=== PATIENT | female | born 1980 | race Caucasian/White ===

== ENCOUNTER 2016-07-21 05:56 | Inpatient (IN) | payer BC ==
[2016-07-21 06:12] VITALS: BMI 42.6
[2016-07-21] MEDS ORDERED: NS 1,000 ML IV ONE ×2 (06:17→06:47)
[2016-07-21] MEDS ORDERED: ONDANSETRON HCL 4 MG/2 ML VIAL IV STA (06:17)
--- NOTE | 2016-07-21 06:41 | EDPRACDOC ---
- General Information Information Source: Patient Mode Of Arrival: Walk - History of Present Illness Onset: yesterday Pain Location: Reports: Suprapubic Pain Context: Reports: Spontaneous Pain Severity: Moderate Pain Quality: Reports: Aching Pain Radiation: Reports: Flank Last Menstrual Period: 2 weeks ago : No Female Associated Signs & Symptoms: Reports: Nausea, Vomiting, Dysuria, Fever Oral Intake: Decreased <Mason Adams - Last Filed: 07/21/16 06:27> <Walter Torres - Last Filed: 07/21/16 08:12> - General Information Chief Complaint: Abdominal Pain Stated Complaint: KIDNEY PAIN/ VOMITING Time Seen by Provider: 07/21/16 06:01 Home Medications: Home Medications Ciprofloxacin HCl 500 mg PO BID 07/21/16 Promethazine [Phenergan] 1 tab PO Q6-8H PRN 07/21/16 Allergies/Adverse Reactions: Allergies Allergy/AdvReac Type Severity Reaction Status Date / Time codeine [Codeine] Allergy See Verified 09/30/14 20:44 Comments - History of Present Illness HPI: PT PRESENTS WITH LOWER ABDOMINAL PAIN AND FLANK PAIN WITH FEVERS AT HOME. SHE WENT TO URGENT CARE YESTERDAY AND WAS DIAGNOSED WITH A UTI. (Mason Adams) ED Past Medical History - History Reviewed Yes Nurses notes reviewed and agree except as marked - Patient Medical History Cardiac History: Reports: Hypercholesterolemia Psychological History: Reports: Depression, Anxiety. Denies: Substance Use Disorder Surgical History: Reports: Hysterectomy, Other (CARPAL TUNNEL SURGERY) - Social Medical History Smoking Status: Heavy tobacco smoker (5 or more cigarettes/day or daily pipe/ cigar) Social History: Denies: Substance Use Disorder Lives With: Family Lives In: Home <Mason Adams - Last Filed: 07/21/16 06:27> EDM Review of Systems - Review of Systems ROS Negative Except as Marked: Yes All systems reviewed and were negative except as marked Constitutional: Chills, Fever, Fatigue, Weakness Respiratory: negative: Shortness of Breath Cardiovascular: negative: Chest Pain Gastrointestinal: Nausea, Pain, Vomiting. negative: Diarrhea Genitourinary: Dysuria, Flank Pain <Mason Adams - Last Filed: 07/21/16 06:27> - Physical Exam Constitutional: Alert Oriented to: Time, Person, Place - HEENT Head: negative: Deformity, Laceration Eye Exam: negative: Conjunctival Injection, Pale Conjunctiva Oropharynx: negative: Membranes Dry Nose: negative: Congestion, Discharge Neck: negative: Limited ROM - Respiratory/Cardiovascular Respiratory: Normal - CTA. negative: Accessory Muscle Use, Diminished, Tachypnea Cardiovascular: Tachycardia. negative: Bradycardia, Irregular - GI Auscultation: Normal Palpation: Normal Tenderness: Mild, Suprapubic. negative: Guarding, Rebound, Rigidity - Musculoskeletal Extremities: Radial Pulse (PALPABLE) - Integumentary Skin: Warm, Dry. negative: Rash - Neurologic Memory Impaired: Normal Motor Function: Normal Mood Description: Anxious, Appropriate Thought: Coherent Perception: Normal <Mason Adams - Last Filed: 07/21/16 06:27> - EKG EKG #1 EKG Time: 06:39 -: Yes EKG interpreted by me Rate: bpm: 95 Rhythm: NSR Block: None ST: Nonsp <Mason Adams - Last Filed: 07/21/16 06:27> - Results 07/21/16 06:45 07/21/16 06:45 <Walter Torres - Last Filed: 07/21/16 08:12> - Results WBC 24.3 xk/uL (3.8-10.8) H 07/21/16 06:45 RBC 4.73 xM/uL (4.20-5.40) 07/21/16 06:45 Hgb 14.8 g/dL (12.0-16.0) 07/21/16 06:45 Hct 43.9 % (36-47) 07/21/16 06:45 MCV 93 fL (81-99) 07/21/16 06:45 MCH 31.4 pg (27-32) 07/21/16 06:45 MCHC 33.8 g/dl (33-36) 07/21/16 06:45 RDW 12.9 % (11.5-14.5) 07/21/16 06:45 Plt Count 306 xk/uL (130-400) 07/21/16 06:45 MPV 7.9 fL (7.4-10.4) 07/21/16 06:45 Neut % (Auto) Cancelled 07/21/16 06:45 Lymph % (Auto) Cancelled 07/21/16 06:45 [place] % (Auto) Cancelled 07/21/16 06:45 Eos % (Auto) Cancelled 07/21/16 06:45 Baso % (Auto) Cancelled 07/21/16 06:45 Absolute Neuts (auto) Cancelled 07/21/16 06:45 Absolute Lymphs (auto) Cancelled 07/21/16 06:45 Seg Neuts % (Manual) 72 % (45-76) 07/21/16 06:45 Band Neutrophils % 4 % (0-5) 07/21/16 06:45 Lymphocytes % (Manual) 15 % (17-44) L 07/21/16 06:45 Monocytes % (Manual) 9 % (0-10) 07/21/16 06:45 Absolute Neutrophils 18.47 xk/uL (1.7-8.2) H 07/21/16 06:45 Absolute Lymphocytes 3.65 xk/uL (0.65-4.75) 07/21/16 06:45 Platelet Estimate Norm (NORMAL) 07/21/16 06:45 RBC Morphology Norm 07/21/16 06:45 PT 11.6 SEC (9.2-11.2) H 07/21/16 06:45 INR 1.1 07/21/16 06:45 APTT 31.3 SEC (22-35) 07/21/16 06:45 Sodium 138 mEq/L (137-146) 07/21/16 06:45 Potassium 3.4 mEq/L (3.5-5.1) L 07/21/16 06:45 Chloride 104 mEq/L (98-107) 07/21/16 06:45 Carbon Dioxide 24 mMOL/L (22-33) 07/21/16 06:45 Anion Gap 13 mEq/L (8-16) 07/21/16 06:45 BUN 8 MG/DL (7-17) 07/21/16 06:45 Creatinine 0.70 MG/DL (0.52-1.04) 07/21/16 06:45 Estimated GFR (MDRD) > 60 mL/min (>=60) 07/21/16 06:45 Glucose 115 MG/DL (70-99) H 07/21/16 06:45 Calculated Osmolality 265 MOs/Kg (270-290) L 07/21/16 06:45 Lactic Acid 1.2 mEq/L (0.7-2.1) 07/21/16 06:45 Calcium 8.6 MG/DL (8.4-10.2) 07/21/16 06:45 Corrected Calcium 9.0 MG/DL (8.4-10.2) 07/21/16 06:45 Total Bilirubin 0.6 MG/DL (0.2-1.3) 07/21/16 06:45 AST 21 IU/L (14-36) 07/21/16 06:45 ALT 25 IU/L (9-52) 07/21/16 06:45 Alkaline Phosphatase 79 IU/L (38-126) 07/21/16 06:45 Total Protein 7.0 G/DL (6.3-8.2) 07/21/16 06:45 Albumin 3.6 G/DL (3.5-5.0) 07/21/16 06:45 Urine Color Dark yellow 07/21/16 06:25 Urine Clarity Sl cldy 07/21/16 06:25 Urine pH 6.0 (5.0-8.0) 07/21/16 06:25 Ur Specific [place] 1.015 (1.003-1.035) 07/21/16 06:25 Urine Protein 2+ (NEG/TRACE) H 07/21/16 06:25 Urine Glucose (UA) Trace (NEGATIVE) 07/21/16 06:25 Urine Ketones Neg (NEGATIVE) 07/21/16 06:25 Urine Occult Blood 3+ (NEG/TRACE) H 07/21/16 06:25 Urine Nitrite Neg (NEGATIVE) 07/21/16 06:25 Urine Bilirubin Neg (NEGATIVE) 07/21/16 06:25 Urine Urobilinogen <2.0 MG/DL (0-1) 07/21/16 06:25 Ur Leukocyte Esterase 2+ (NEGATIVE) H 07/21/16 06:25 Urine RBC 10-20 (0-5) H 07/21/16 06:25 Urine WBC Tntc (0-5) H 07/21/16 06:25 Urine WBC Clumps Present (NONE) H 07/21/16 06:25 Ur Epithelial Cells 2+ 07/21/16 06:25 Urine Bacteria Few (NEG/FEW) 07/21/16 06:25 Urine Mucus Mod (NEG/OCC) H 07/21/16 06:25 Lab Results 07/21/16 07/21/16 07/21/16 06:45 06:45 06:45 WBC 24.3 H RBC 4.73 Hgb 14.8 Hct 43.9 MCV 93 MCH 31.4 MCHC 33.8 RDW 12.9 Plt Count 306 MPV 7.9 Neut % (Auto) Cancelled Lymph % (Auto) Cancelled [place] % (Auto) Cancelled Eos % (Auto) Cancelled Baso % (Auto) Cancelled Absolute Neuts (auto) Cancelled Absolute Lymphs (auto) Cancelled Seg Neuts % (Manual) 72 Band Neutrophils % 4 Lymphocytes % (Manual) 15 L Monocytes % (Manual) 9 Absolute Neutrophils 18.47 H Absolute Lymphocytes 3.65 Platelet Estimate Norm RBC Morphology Norm PT 11.6 H INR 1.1 APTT 31.3 Sodium Potassium Chloride Carbon Dioxide Anion Gap BUN Creatinine Estimated GFR (MDRD) Glucose Calculated Osmolality Lactic Acid 1.2 Calcium Corrected Calcium Total Bilirubin AST ALT Alkaline Phosphatase Total Protein Albumin Urine Color Urine Clarity Urine pH Ur Specific [place] Urine Protein Urine Glucose (UA) Urine Ketones Urine Occult Blood Urine Nitrite Urine Bilirubin Urine Urobilinogen Ur Leukocyte Esterase Urine RBC Urine WBC Urine WBC Clumps Ur Epithelial Cells Urine Bacteria Urine Mucus 07/21/16 07/21/16 06:45 06:25 WBC RBC Hgb Hct MCV MCH MCHC RDW Plt Count MPV Neut % (Auto) Lymph % (Auto) [place] % (Auto) Eos % (Auto) Baso % (Auto) Absolute Neuts (auto) Absolute Lymphs (auto) Seg Neuts % (Manual) Band Neutrophils % Lymphocytes % (Manual) Monocytes % (Manual) Absolute Neutrophils Absolute Lymphocytes Platelet Estimate RBC Morphology PT INR APTT Sodium 138 Potassium 3.4 L Chloride 104 Carbon Dioxide 24 Anion Gap 13 BUN 8 Creatinine 0.70 Estimated GFR (MDRD) > 60 Glucose 115 H Calculated Osmolality 265 L Lactic Acid Calcium 8.6 Corrected Calcium 9.0 Total Bilirubin 0.6 AST 21 ALT 25 Alkaline Phosphatase 79 Total Protein 7.0 Albumin 3.6 Urine Color Dark yellow Urine Clarity Sl cldy Urine pH 6.0 Ur Specific [place] 1.015 Urine Protein 2+ H Urine Glucose (UA) Trace Urine Ketones Neg Urine Occult Blood 3+ H Urine Nitrite Neg Urine Bilirubin Neg Urine Urobilinogen <2.0 Ur Leukocyte Esterase 2+ H Urine RBC 10-20 H Urine WBC Tntc H Urine WBC Clumps Present H Ur Epithelial Cells 2+ Urine Bacteria Few Urine Mucus Mod H (Walter Torres) <Mason Adams - Last Filed: 07/21/16 06:27> - Departure Yes I personally saw and evaluated the patient. Disposition: Admit IP To This Hospital Decision to Admit Time: 08:12 Decision to admit date: 07/21/16 Decision to admit: from ED - Physician Consulted Hospitalist Time Called: 08:12 Provider Called: Kamron Loaiza Time Radiology Administrator Returned Call: 08:12 <Walter Torres - Last Filed: 07/21/16 08:12> - Departure Condition: Stable Final Diagnosis: Pyelonephritis UTI (urinary tract infection) Qualifiers: Urinary tract infection type: acute cystitis Hematuria presence: with hematuria Qualified Code(s): N30.01 - Acute cystitis with hematuria Nausea & vomiting Qualifiers: Vomiting type: unspecified Vomiting Intractability: non-intractable Qualified Code(s): R11.2 - Nausea with vomiting, unspecified Acute low back pain Qualifiers: Back pain laterality: bilateral Sciatica presence: without sciatica Qualified Code(s): M54.5 - Low back pain Instructions: Urinary Tract Infection in Women (ED), Dysuria, Acute Nausea and Vomiting (ED), Core Strengthening Exercises (GEN), Back Pain
[2016-07-21 06:45] LABS: LEUKOCYTES/URINE 2+ (NEGATIVE); NITRITE/URINE NEG (NEGATIVE); URINE OCCULT BLOOD 3+ (NEG/TRACE); WBC/URINE TNTC (0-5)
[2016-07-21] MEDS ORDERED: MORPHINE 4 MG/ML INJECTION IV ONE (06:45)
--- NOTE | 2016-07-21 06:52 | DIRPT ---
CLINICAL DATA: Acute onset of vomiting and chills. Initial encounter. EXAM: PORTABLE CHEST 1 VIEW COMPARISON: None. FINDINGS: The lungs are well-aerated and clear. There is no evidence of focal opacification, pleural effusion or pneumothorax. The cardiomediastinal silhouette is within normal limits. No acute osseous abnormalities are seen. IMPRESSION: No acute cardiopulmonary process seen. Electronically Signed By: Garrick Cortez M.D. On: 07/21/2016 06:49
[2016-07-21] MEDS ORDERED: Pharmacy Review for Metformin - IV Contrast Given SCH (07:00)
[2016-07-21 07:03] LABS: MPV 7.9 fL (7.4-10.4)
[2016-07-21 07:08] LABS: BLOOD UREA NITROGEN 8 MG/DL (7-17); CALCIUM 8.6 MG/DL (8.4-10.2); CALCULATED OSMOLALITY 265 MOs/Kg (270-290); CHLORIDE 104 mEq/L (98-107); GLUCOSE 115 MG/DL (70-99); SODIUM LEVEL 138 mEq/L (137-146)
[2016-07-21 07:13] LABS: PARTIAL THROMB. TIME 31.3 SEC (22-35); PT-INR 1.1
--- NOTE | 2016-07-21 07:26 | DIRPT ---
CLINICAL DATA: Lower abdominal and pelvic pain, 6 days duration. Clinical suspicion of pyelonephritis. Abdominal pain and fever. EXAM: CT ABDOMEN AND PELVIS WITH CONTRAST TECHNIQUE: Multidetector CT imaging of the abdomen and pelvis was performed using the standard protocol following bolus administration of intravenous contrast. CONTRAST: 100 cc Isovue 370 COMPARISON: 01/27/2008 FINDINGS: There is diffuse fatty change of the liver without focal lesion. No calcified gallstones. The spleen is normal. The pancreas is normal. The adrenal glands are normal. The kidneys are normal by CT. Symmetric and normal size. No cyst, mass, stone or hydronephrosis. No imaging evidence of pyelonephritis. The aorta and IVC are normal except for early atherosclerosis. No retroperitoneal mass or adenopathy. No free intraperitoneal fluid or air. No bowel pathology is seen. Normal appearing appendix. Uterus and adnexal regions are normal. Bladder is normal. No significant bone finding. IMPRESSION: No CT finding to indicate pyelonephritis. No acute finding. Fatty liver. Early atherosclerosis. Electronically Signed By: Josesito Navas M.D. On: 07/21/2016 07:23
[2016-07-21 07:27] LABS: SEG NEUTROPHIL 72 % (45-76)
[2016-07-21] MEDS ORDERED: CEFTRIAXONE 1 GM in D5W 100 ML IV ONE (07:52)
[2016-07-21] MEDS ORDERED: PROMETHAZINE 25 MG TAB PO PRN (08:13)
[2016-07-21] MEDS ORDERED: BISACODYL 10 MG SUPP PR PRN (08:13)
[2016-07-21] MEDS ORDERED: BENZONATATE 100 MG PERLES PO PRN (08:13)
[2016-07-21] MEDS ORDERED: SENNA CONCENTRATE TAB PO PRN (08:13)
[2016-07-21] MEDS ORDERED: ACETAMINOPHEN 325 MG/TAB TABLET PO PRN (08:13)
[2016-07-21] MEDS ORDERED: METOCLOPRAMIDE 10 MG/2 ML VIAL IV PRN (08:13)
[2016-07-21] MEDS ORDERED: PROMETHAZINE 25 MG/ML VIAL IV PRN (08:13)
[2016-07-21] MEDS ORDERED: ACETAMINOPHEN 325 MG SUPP PR PRN (08:13)
--- NOTE | 2016-07-21 08:13 | HISTPHYS ---
- Chief Complaint Urinary tract infection yesterday started on Cipro but unable to keep medicine down nausea vomiting - History of Present Illness Patient very pleasant 36 year white morbidly obese smoker female who comes in the emergency room today complaining of burning on urination starting 6 days ago and never had history of urinary tract infection. She had lower abdominal pain getting worse over the past several days with fever. Nausea vomiting accompanying her infection starting yesterday and unable to keep down her Cipro that which she was just given at the walk-in clinic near [place]. She was unable to keep any other medication down over the next 18 hours. Upon arrival here she was noted to have significant pyuria. She smokes a pack and half cigarettes a day as well as her . She has been able to quit smoking twice in her life 1 time for year the other time for 6 months. She does not drink any alcoholic beverages nor does she take any illicit drugs. - Medical History Cardiac History: Reports: Hypercholesterolemia Respiratory History: Reports: No Significant History GI/ History: Reports: [facility] GI Yes/No Other (Fatty liver disease noted on CT of the abdomen) Musculoskeletal History: Reports: No Significant History Systemic History: Reports: No Significant History Neurological History: Reports: No Significant History Psychological History: Reports: Depression, Anxiety. Denies: Substance Use Disorder - Surgical History Reports: Other (Transposition of the right ulnar nerve, D&C for endometriosis & BTL) - Medictions/Allergies Allergies codeine [Codeine] Allergy (Verified 09/30/14 20:44) See Comments "very hyper" Current Medication List: Reviewed Home Medications Ciprofloxacin HCl 500 mg PO BID 07/21/16 Promethazine [Phenergan] 1 tab PO Q6-8H PRN 07/21/16 - Family History Reports: Hypertension (Father), Cancer (Cancer of the prostate in her father), Other (Father with black lung disease) - Social History Travel Outside of [place] in the Last 3 Months?: No Lives: With Family Smoking Status: Heavy tobacco smoker (5 or more cigarettes/day or daily pipe/ cigar) (Smokes pack and half cigarettes a day was able to quit twice in the past once for a year the other for 6 months) Social History: Denies: Alcohol Use, Substance Use Disorder - Review of Systems Constitutional: Chills, Fever, Fatigue, Weakness Eyes: No Symptoms Reported (No blurry vision, visual changes, eye pain, or eye redness.) Ears: No Symptoms Reported (No ear pain or discharge) Nose: No Symptoms Reported (No nasal discharge/congestion or bleeding) Mouth: No Symptoms Reported (No oropharyngeal lesions or erythema) Throat/Neck: No Symptoms Reported (No throat pain or swelling.No oropharyngeal lesions or erythema.) Respiratory: No Symptoms Reported (No cough, wheezing, or shortness of breath.) Cardiovascular: No Symptoms Reported (No chest pain or palpitations.) Gastrointestinal: Nausea, Vomiting, Abdominal Pain Genitourinary: Dysuria, Frequency, Urgency to urinate Neurological: No Symptoms Reported (No headache, dizziness, seizures, or focal weakness.) Musculoskeletal:: Osteoarthritis Integumentary: No Symptoms Reported (no rashes or lesions) Allergic/Immunologic: No Symptoms Reported (no rashes or lesions) Hematologic: No Symptoms Reported (No chronic anemia, bleeding, or easy bruising.), Other (Lymphatics- no lymph node swelling or pain.) Endocrine: No Symptoms Reported (No thyroid issues, polyuria, or polydipsia.) Psychiatric: Anxiety, Depression - Physical Exam Vital Signs: Initial Vitals Temperature 98.6 F 07/21/16 06:04 Pulse Rate 115 07/21/16 06:04 Respiratory Rate 18 07/21/16 06:04 Blood Pressure 147/74 07/21/16 06:04 Pulse Oxygen Saturation 96 07/21/16 06:04 Constitutional: Alert (Awake, Fully oriented. Normal and appropriate affect.Well appearing. Well nourished.), No apparent distress Oriented to: Time, Person, Place - HEENT Head: Normal (normocephalic, atraumatic.), Other (No cervical lymphadenopathy. No supraclavicular lymphadenopathy. Neck: No palpable mass, supple , trachea midline.) Eye: Normal (pupils equal, reactive to light, and round; EOMI, Sclera white) Oropharynx: Normal (Pharynx: Moist without exudate,Gums-no swelling, No oropharyngeal lesions or erythema, Mucous membranes are dry.) ENT EAC: Normal (No oropharyngeal lesions or erythema. Mucous membranes are dry. ) TMJ: Normal Nose: No Symptoms Reported (septum midline, Nares patent, without discharge or bleeding.) Respiratory: Normal - CTA (Clear to auscultation bilaterally. No wheezing, rales , rhonchi. Chest wall movements are symmetric. No use of accessory muscles to breathe.) Cardiovascular: Normal (RRR , Normal S1, S2. No murmurs, rubs, or gallops. PMI non-displaced. Carotids: no carotid bruits. No bradycardia or tachycardia. DP pulses 2+ bilaterally.) - GI Auscultation: Normal (normal active sounds) Palpation: Normal (Soft,non distended, No discernible hepatosplenomegaly.), Other (Morbid obesity with BMI 42.7) Tenderness: Mild, Moderate, Suprapubic Gomez's Sign: Negative - Musculoskeletal Back: Normal (Non-Tender) Extremities: Normal (Normal tone, DP pulses 2+ bilaterally, No cyanosis or edema bilaterally, FROM bilaterally.) Spine: non-tender, normal alignment, limited range of motion - Integumentary Skin: Normal (Clean, dry, and intact. No rashes. No lesions.) Lymphatics: Normal (No cervical lymphadenopathy. No supraclavicular lymphadenopathy.) - Neurologic Memory Impaired: Normal Motor Function: Normal (Motor 5/5 throughout.Normal tone, Pulses 2+ No cyanosis or edema, FROM) Cranial Nerve: Normal (CN II-XII intact sensation, strength 5/5) Cerebellar: Normal (Babinski: toes downgoing bilaterally. Intact Finger to nose. Sensory grossly intact to light touch. Intact rapid alternating movements bilaterally. No pronator drift.) Mood Description: Normal (Fully oriented. Normal and appropriate affect.) Thought: Coherent Perception: Normal (Normal and appropriate affect.) - Focused CV Perfusion Exam Vital Signs: Last Vital Signs Temp 98.6 F 07/21/16 06:04 Pulse 94 07/21/16 07:17 Resp 18 07/21/16 07:17 BP 114/60 07/21/16 07:17 Pulse Ox 96 07/21/16 07:17 - Lab Results 07/21/16 06:45 07/21/16 06:45 Laboratory Results - last 24 hr 07/21/16 07/21/16 07/21/16 06:25 06:45 06:45 WBC RBC Hgb Hct MCV MCH MCHC RDW Plt Count MPV Neut % (Auto) Lymph % (Auto) [place] % (Auto) Eos % (Auto) Baso % (Auto) Absolute Neuts (auto) Absolute Lymphs (auto) Seg Neuts % (Manual) Band Neutrophils % Lymphocytes % (Manual) Monocytes % (Manual) Absolute Neutrophils Absolute Lymphocytes Platelet Estimate RBC Morphology PT INR APTT Sodium 138 Potassium 3.4 L Chloride 104 Carbon Dioxide 24 Anion Gap 13 BUN 8 Creatinine 0.70 Estimated GFR (MDRD) > 60 Glucose 115 H Calculated Osmolality 265 L Lactic Acid 1.2 Calcium 8.6 Corrected Calcium 9.0 Total Bilirubin 0.6 AST 21 ALT 25 Alkaline Phosphatase 79 Total Protein 7.0 Albumin 3.6 TSH Urine Color Dark yellow Urine Clarity Sl cldy Urine pH 6.0 Ur Specific [place] 1.015 Urine Protein 2+ H Urine Glucose (UA) Trace Urine Ketones Neg Urine Occult Blood 3+ H Urine Nitrite Neg Urine Bilirubin Neg Urine Urobilinogen <2.0 Ur Leukocyte Esterase 2+ H Urine RBC 10-20 H Urine WBC Tntc H Urine WBC Clumps Present H Ur Epithelial Cells 2+ Urine Bacteria Few Urine Mucus Mod H 07/21/16 07/21/16 07/21/16 06:45 06:45 06:45 WBC 24.3 H RBC 4.73 Hgb 14.8 Hct 43.9 MCV 93 MCH 31.4 MCHC 33.8 RDW 12.9 Plt Count 306 MPV 7.9 Neut % (Auto) Cancelled Lymph % (Auto) Cancelled [place] % (Auto) Cancelled Eos % (Auto) Cancelled Baso % (Auto) Cancelled Absolute Neuts (auto) Cancelled Absolute Lymphs (auto) Cancelled Seg Neuts % (Manual) 72 Band Neutrophils % 4 Lymphocytes % (Manual) 15 L Monocytes % (Manual) 9 Absolute Neutrophils 18.47 H Absolute Lymphocytes 3.65 Platelet Estimate Norm RBC Morphology Norm PT 11.6 H INR 1.1 APTT 31.3 Sodium Potassium Chloride Carbon Dioxide Anion Gap BUN Creatinine Estimated GFR (MDRD) Glucose Calculated Osmolality Lactic Acid Calcium Corrected Calcium Total Bilirubin AST ALT Alkaline Phosphatase Total Protein Albumin TSH 2.29 Urine Color Urine Clarity Urine pH Ur Specific [place] Urine Protein Urine Glucose (UA) Urine Ketones Urine Occult Blood Urine Nitrite Urine Bilirubin Urine Urobilinogen Ur Leukocyte Esterase Urine RBC Urine WBC Urine WBC Clumps Ur Epithelial Cells Urine Bacteria Urine Mucus - Diagnostic Findings CT abdomen pelvis no evidence of pyelonephritis but she does have fatty liver. - Assessment (1) Nausea & vomiting R11.2 - NAUSEA WITH VOMITING, UNSPECIFIED Acute Qualifiers: Vomiting type: unspecified Vomiting Intractability: non-intractable Qualified Code(s): R11.2 - Nausea with vomiting, unspecified Gastroenteritis so she ate with her urinary tract infection making it impossible for her to take her p.o. antibiotics. Patient started on IV Rocephin and Levaquin for the significant infection. (2) Pyelonephritis N12 - TUBULO-INTERSTITIAL NEPHRITIS, NOT SPCF ACUTE OR CHRONIC Acute Present on Admission: Yes Urinary tract infection with suggestion of pyelonephritis not evident on CT of the abdomen pelvis. IV antibiotics consisting of Rocephin Levaquin until sensitivities are available. Clear liquid diet will be offered until able to take more substantial feedings. (3) Fatty liver disease, nonalcoholic K76.0 - FATTY (CHANGE OF) LIVER, NOT ELSEWHERE CLASSIFIED Chronic Present on Admission: Yes Likely associated with her morbid obesity. Caloric restriction is necessary. (4) Tobacco abuse Z72.0 - TOBACCO USE Chronic Present on Admission: Yes Discussed smoking cessation with patient and spouse for at least 11 minutes and patient expressed interest in starting on Chantix. She indicated she had been able to quit smoking cigarettes twice in the past; once for 6 months and the other for a year. (5) Morbid obesity with BMI of 40.0-44.9, adult E66.01 - MORBID (SEVERE) OBESITY DUE TO EXCESS CALORIES; Z68.41 - BODY MASS INDEX (BMI) 40.0-44.9, ADULT Chronic Present on Admission: Yes Case Care Discussed with: Patient, Family, Nursing Staff, Resource Management Total Time: One Hour 20 minutes Critical Care: No Code: [id number] ([id number])
[2016-07-21] MEDS ORDERED: BuPROPion 150 MG SR TAB PO SCH (09:00)
[2016-07-21] MEDS: Levofloxacin 750 mg/150 ml D5W 750 MG/150 ML RTU IV SCH (10:31)
[2016-07-21] MEDS: NS/KCl 20 mEq 1,000 ML IV SCH ×2 (10:31→17:29)
[2016-07-21] MEDS: OXYCODONE HCL 5 MG TABLET PO PRN ×2 (10:32→21:07)
[2016-07-21] MEDS: NICOTINE 21 MG PATCH TOP SCH (10:32)
[2016-07-21] MEDS ORDERED: Vaccine Screening Complete SCH (11:00)
[2016-07-21] MEDS: PROBIOTIC BLEND TAB PO SCH ×2 (11:59→17:10)
[2016-07-21] MEDS ORDERED: NS 50 ML IV ONE (14:21)
[2016-07-21] MEDS ORDERED: HYDROmorphone 1 MG INJECTION IV PRN (15:19)
[2016-07-21] MEDS: HYDROmorphone 1 MG INJECTION IV PRN ×2 (15:33→22:55)
[2016-07-21] MEDS ORDERED: ENOXAPARIN 80 MG/0.8 ML PFS SQ SCH (18:00)
[2016-07-21] MEDS: IBUPROFEN INTRAVENOUS 400 MG in NS 100 ML IV PRN (18:14)
[2016-07-21] MEDS: KCl 10 mEq/100 ml Premix (Run) 10 MEQ/100 ML RTU IV SCH (20:13)
[2016-07-21] MEDS: TEMAZEPAM 15 MG CAP PO PRN ×2 (20:58→22:55)
[2016-07-22] MEDS ORDERED: Aluminum;Magnesium;Simethicone 30 ML UDC PO PRN (00:04)
[2016-07-22] MEDS ORDERED: Aluminum;Magnesium;Simethicone 30 ML UDC PO ONE (00:05)
[2016-07-22] MEDS: KCl 10 mEq/100 ml Premix (Run) 10 MEQ/100 ML RTU IV SCH (00:38)
[2016-07-22] MEDS: NS/KCl 20 mEq 1,000 ML IV SCH ×2 (02:11→05:23)
[2016-07-22] MEDS: OXYCODONE HCL 5 MG TABLET PO PRN ×2 (03:31→08:52)
[2016-07-22] MEDS: IBUPROFEN INTRAVENOUS 400 MG in NS 100 ML IV PRN (05:23)
[2016-07-22 07:28] LABS: AUTOMATED BASOPHIL 0.5 % (0-2); AUTOMATED EOSINOPHIL 0.5 % (0-5); AUTOMATED LYMPH 25.6 % (17-44); AUTOMATED MONOCYTE 12.5 % (3-10); AUTOMATED NEUTROPHIL 60.9 % (45-76); MPV 8.2 fL (7.4-10.4)
[2016-07-22] MEDS ORDERED: Magnesium Sulfate 2 gm/D5W 2 GM/50 ML RTU IV ONE (07:48)
--- NOTE | 2016-07-22 07:50 | GENMEDPROG ---
Chief Complaint: Hungry wants advance in diet Notes Reviewed: Yes Events from last night noted and discussed with Clinical Staff Current Medication List: Reviewed DVT Prophylaxis: Yes - Physical Examination Vital Signs and I&O: Last Vital Signs Temp 99.9 F 07/22/16 06:00 Pulse 103 07/22/16 06:00 Resp 20 07/22/16 06:00 BP 151/83 07/22/16 06:00 Pulse Ox 95 07/22/16 06:00 Oxygen Pulse Oxygen Saturation 95 O2 Device Room Air Oxygen Flow Rate Fraction of Inspired Oxygen ( FIO2) Intake & Output 07/19/16 07/20/16 07/21/16 07/22/16 23:59 23:59 23:59 23:59 Intake Total 3175 2215 Output Total 300 800 Balance 2875 1415 Patient's weight 127.278 kg 127.233 kg General: Alert, Oriented x3, No acute distress, Well appearing, Well nourished HEENT: Normal (Normocephalic, atraumatic;EOMI.Sclera white, Nares patent, without discharge or bleeding. No oropharyngeal lesions or erythema. Mucous membranes are dry.) Lymphatics: Normal (No cervical lymphadenopathy. No supraclavicular lymphadenopathy.) Respiratory: Normal - CTA (Clear to auscultation bilaterally. No wheezing, rales , rhonchi. Chest wall movements are symmetric. No use of accessory muscles to breathe.) - Assessment (1) Nausea & vomiting Acute R11.2 - NAUSEA WITH VOMITING, UNSPECIFIED Qualifiers: Vomiting type: unspecified Vomiting Intractability: non-intractable Qualified Code(s): R11.2 - Nausea with vomiting, unspecified Comment/Plan: Gastroenteritis so she ate with her urinary tract infection making it impossible for her to take her p.o. antibiotics. Patient started on IV Rocephin and Levaquin for the significant infection. (2) Pyelonephritis Acute N12 - TUBULO-INTERSTITIAL NEPHRITIS, NOT SPCF ACUTE OR CHRONIC Comment/Plan: Urinary tract infection with suggestion of pyelonephritis not evident on CT of the abdomen pelvis. IV antibiotics consisting of Rocephin Levaquin until sensitivities are available. Clear liquid diet will be offered until able to take more substantial feedings. (3) Fatty liver disease, nonalcoholic Chronic K76.0 - FATTY (CHANGE OF) LIVER, NOT ELSEWHERE CLASSIFIED Comment/ Plan: Likely associated with her morbid obesity. Caloric restriction is necessary. (4) Tobacco abuse Chronic Z72.0 - TOBACCO USE Comment/Plan: Discussed smoking cessation with patient and spouse for at least 11 minutes and patient expressed interest in starting on Chantix. She indicated she had been able to quit smoking cigarettes twice in the past; once for 6 months and the other for a year. (5) Morbid obesity with BMI of 40.0-44.9, adult Chronic E66.01 - MORBID (SEVERE) OBESITY DUE TO EXCESS CALORIES; Z68.41 - BODY MASS INDEX (BMI) 40.0-44.9, ADULT Case Care Discussed with: Patient, Nursing Staff Education/Counseling Given To: Patient Education/Counseling Given Regarding: Diagnosis Critical Care: No
[2016-07-22] MEDS ORDERED: CEFTRIAXONE 1 GM in D5W 100 ML IV SCH (08:00)
[2016-07-22] MEDS ORDERED: PNEUMOCOCCAL 0.5 ML VIAL IM ONE (08:00)
[2016-07-22 08:14] LABS: BLOOD UREA NITROGEN 5 MG/DL (7-17); CALCIUM 7.8 MG/DL (8.4-10.2); CALCULATED OSMOLALITY 262 MOs/Kg (270-290); CHLORIDE 103 mEq/L (98-107); GLUCOSE 111 MG/DL (70-99); SODIUM LEVEL 137 mEq/L (137-146)
[2016-07-22] MEDS: NICOTINE 21 MG PATCH TOP SCH (08:44)
[2016-07-22] MEDS: Levofloxacin 750 mg/150 ml D5W 750 MG/150 ML RTU IV SCH ×2 (08:44→10:25)
[2016-07-22 10:43] VITALS: BP 117/70; PULSE 81; TEMP 98.4
[2016-07-22] MEDS: PROBIOTIC BLEND TAB PO SCH (12:18)
--- NOTE | 2016-07-22 12:46 | PCM.DCS92 ---
- Final/Secondary Discharge Diagnosis (1) Nausea & vomiting Acute R11.2 - NAUSEA WITH VOMITING, UNSPECIFIED Present on Admission: Yes unspecified non-intractable R11.2 - Nausea with vomiting, unspecified Comment: Gastroenteritis so she ate with her urinary tract infection making it impossible for her to take her p.o. antibiotics. Patient started on IV Rocephin and Levaquin for the significant infection. (2) Pyelonephritis Acute N12 - TUBULO-INTERSTITIAL NEPHRITIS, NOT SPCF ACUTE OR CHRONIC Present on Admission: Yes Comment: Urinary tract infection with suggestion of pyelonephritis not evident on CT of the abdomen pelvis. IV antibiotics consisting of Rocephin Levaquin until sensitivities are available. Clear liquid diet will be offered until able to take more substantial feedings. (3) Fatty liver disease, nonalcoholic Chronic K76.0 - FATTY (CHANGE OF) LIVER, NOT ELSEWHERE CLASSIFIED Present on Admission: Yes Comment: Likely associated with her morbid obesity. Caloric restriction is necessary. (4) Morbid obesity with BMI of 40.0-44.9, adult Chronic E66.01 - MORBID (SEVERE) OBESITY DUE TO EXCESS CALORIES; Z68.41 - BODY MASS INDEX (BMI) 40.0-44.9, ADULT Present on Admission: Yes Comment: Weight reduction with calorie restriction is recommended on discharge. (5) Tobacco abuse Chronic Z72.0 - TOBACCO USE Present on Admission: Yes Comment: Discussed smoking cessation with patient and spouse for at least 11 minutes and patient expressed interest in starting on Chantix. She indicated she had been able to quit smoking cigarettes twice in the past; once for 6 months and the other for a year. Discharge Disposition: Home Discharge Condition: Improved Cognitive Discharge Status: Unimpaired Fuctional Discharge Status: Independent Physician Follow up/Referrals: None,No Provider [Family Provider] - One Week (Primary care provider on-call for unassigned follow-up) New Prescriptions: Amoxicillin/Potassium Clav [Augmentin 875-125 Tablet] 1 each PO BID #20 tablet Varenicline [Chantix] 0.5 mg PO PROTOCOL #60 tablet Varenicline [Chantix] 1 mg PO BID #60 tablet Discharge Home Medication List Ciprofloxacin HCl 500 mg PO BID 07/21/16 [History Confirmed 07/21/16 Last Taken 07/20/16 23:00] Promethazine [Phenergan] 1 tab PO Q6-8H PRN 07/21/16 [History Confirmed Last Taken 07/20/16 23:00] Amoxicillin/Potassium Clav [Augmentin 875-125 Tablet] 1 each PO BID #20 tablet 07/22/16 [Rx Last Taken Unknown] Varenicline [Chantix] 0.5 mg PO PROTOCOL #60 tablet 07/22/16 [Rx Last Taken Unknown] Varenicline [Chantix] 1 mg PO BID #60 tablet 07/22/16 [Rx Last Taken Unknown] 07/22/16 06:21 07/22/16 06:21 Laboratory Results - last 24 hr 07/22/16 07/22/16 07/22/16 06:21 06:21 06:21 WBC 15.1 H RBC 4.03 L Hgb 12.4 D Hct 37.5 MCV 93 MCH 30.7 MCHC 33.0 RDW 13.0 Plt Count 259 MPV 8.2 Neut % (Auto) 60.9 Lymph % (Auto) 25.6 [place] % (Auto) 12.5 H Eos % (Auto) 0.5 Baso % (Auto) 0.5 Absolute Neuts (auto) 9.06 H Absolute Lymphs (auto) 3.78 Sodium 137 Potassium 3.7 Chloride 103 Carbon Dioxide 24 Anion Gap 14 BUN 5 L Creatinine 0.60 Estimated GFR (MDRD) > 60 Glucose 111 H Calculated Osmolality 262 L Calcium 7.8 L Magnesium 1.90 O2 Device: Room Air Diet at Discharge: As Tolerated, 1800 Calorie Activity: As Tolerated Discontinue use of:: Alcohol, All Types of Tobacco - DC Summary Notes HPI/Notes: Patient very pleasant 36 year white morbidly obese female smoker who comes in the emergency room today complaining of burning on urination starting 6 days ago and never had history of urinary tract infection. She had lower abdominal pain getting worse over the past several days with fever. Nausea vomiting accompanying her infection starting yesterday and unable to keep down her Cipro that which she was just given at the walk-in clinic near [place]. She was unable to keep any other medication down over the next 18 hours. Upon arrival here she was noted to have significant pyuria. She smokes a pack and half cigarettes a day as well as her . She has been able to quit smoking twice in her life 1 time for year the other time for 6 months. She does not drink any alcoholic beverages nor does she take any illicit drugs. Hospital Course Note:: Discharge summary on patient named LEO DAVISON admitted to [facility] on 07/21/16 by Simeon Rothman MD. Date of discharge is 07/22/2016. Patient was admitted with nausea vomiting unable to keep her oral medication for urinary tract infection down and was given IV Rocephin Levaquin in addition to antiemetics. Gradually her diet was reintroduced and she was able to tolerate food again. Urine culture done at this institution was negative for pathogens however feel that this has been impeded by the fact that she has already gotten several antibiotics prior to entry. She was placed on 1800 calorie restricted diet and given a prescription for Augmentin and advised to finish her Cipro that she had at home. She is also advised to follow up with her primary care provider who used to be Jairo LEE, but no longer. Hospital will find a replacement for him with whom she can follow up. CC: Primary care provider assigned by [facility] Total Time: 38 min Code: 13141 (>30min.) - Physical Exam Vital Signs: Last Vital Signs Temp 98.4 F 07/22/16 10:41 Pulse 81 07/22/16 10:41 Resp 18 07/22/16 10:41 BP 117/70 07/22/16 10:41 Pulse Ox 96 07/22/16 10:41 Oxygen Pulse Oxygen Saturation 96 O2 Device Room Air Oxygen Flow Rate Fraction of Inspired Oxygen ( FIO2) Constitutional: Alert (Awake, Fully oriented. Normal and appropriate affect.Well appearing. Well nourished.), No apparent distress Oriented to: Time, Person, Place - HEENT Head: Normal (normocephalic, atraumatic.), Other (No cervical lymphadenopathy. No supraclavicular lymphadenopathy. Neck: No palpable mass, supple , trachea midline.) Eye: Normal (pupils equal, reactive to light, and round; EOMI, Sclera white) Oropharynx: Normal (Pharynx: Moist without exudate,Gums-no swelling, No oropharyngeal lesions or erythema, Mucous membranes are dry.) ENT EAC: Normal (No oropharyngeal lesions or erythema. Mucous membranes are dry. ) TMJ: Normal Nose: No Symptoms Reported (septum midline, Nares patent, without discharge or bleeding.) - Respiratory/Cardiovascular Respiratory: Normal - CTA (Clear to auscultation bilaterally. No wheezing, rales , rhonchi. Chest wall movements are symmetric. No use of accessory muscles to breathe.) Cardiovascular: Normal (RRR , Normal S1, S2. No murmurs, rubs, or gallops. PMI non-displaced. Carotids: no carotid bruits. No bradycardia or tachycardia. DP pulses 2+ bilaterally.) - GI Auscultation: Normal (normal active sounds) Palpation: Normal (Soft,non distended, No discernible hepatosplenomegaly.), Other (Morbid obesity with BMI 42.6) Tenderness: Mild, Moderate, Suprapubic Gomez's Sign: Negative - Musculoskeletal Back: Normal (Non-Tender) Extremities: Normal (Normal tone, DP pulses 2+ bilaterally, No cyanosis or edema bilaterally, FROM bilaterally.) - Integumentary Skin: Normal (Warm dry no rashes) Lymphatics: Normal (No cervical lymphadenopathy. No supraclavicular lymphadenopathy.) - Neurologic Memory Impaired: Normal Motor Function: Normal (Motor 5/5 throughout.Normal tone, Pulses 2+ No cyanosis or edema, FROM) Cranial Nerve: Normal (CN II-XII intact sensation, strength 5/5) Cerebellar: Normal (Babinski: toes downgoing bilaterally. Intact Finger to nose. Sensory grossly intact to light touch. Intact rapid alternating movements bilaterally. No pronator drift.) Mood Description: Normal (Fully oriented. Normal and appropriate affect.) Thought: Coherent Perception: Normal (Normal and appropriate affect.)
== END 2016-07-22 15:01 | disposition home or self-care (01) | DRG 690 ==
LOC: ED 05:56 → MPS3 08:13
PROVIDERS: ADMIT Internal Medicine; ATTEND Internal Medicine
DX: N12 Tubulo-interstitial nephritis, not specified as acute or chronic (principal); K76.0 Fatty (change of) liver, not elsewhere classified; Z68.41 Body mass index [BMI] 40.0-44.9, adult; E66.01 Morbid (severe) obesity due to excess calories; F17.210 Nicotine dependence, cigarettes, uncomplicated; K52.9 Noninfective gastroenteritis and colitis, unspecified; E78.00 Pure hypercholesterolemia, unspecified; F41.8 Other specified anxiety disorders; Z88.5 Allergy status to narcotic agent
CPT/HCPCS: 36415; 71010; 74177; 80048; 80053; 81001; 83605; 83735; 84443; 85007; 85025; 85027; 85610; 85730; 87040; 87086; 90732; 93005; 96361; 96365; 96366; 96372; 96375; 99284; 99406; A9698; G0237; J0696; J1170; J1650; J1741; J1956; J2270; J2405; J2550; J3480; J3490; J7030; J7040; J7060